=== PATIENT | male | born 1990 | race Caucasian/White ===

== ENCOUNTER 2016-05-29 12:42 | Emergency (ER) | payer MEDICAID, OTHER ==
[~2016-05-29] VITALS: Ht 165.1 cm; Wt 86.2 kg
[~2016-05-29 12:42] MED LIST: ABILIFY10 MG PO; ABILIFY5 MG PO; AMBIEN5 MG PO; ATARAX HCL25 MG PO; AZULFIDINE500 M1 PO; CLOMIPRAMINE25 MG; DEPAKOTE500 M2; DIVALPROEX SOD500 M1 PO; FISH OIL1 POW; HYDROCHLOROTHIA25 MG; HYDROXYZINE HCL50 MG; IBUPROFEN600 M1; LEVOTHYROXINE0.05 M3; OMEPRAZOLE MAGN20 MG; SYNTHROID0.05 MG PO; VOLTAREN75 M1 PO
[2016-05-29 12:53] VITALS: BP 146/86
--- NOTE | 2016-05-29 16:30 | NUR ---
Patient appears to be resting comfortably in bed. Vital Signs within normal limits. Respirations even and unlabored.WILL CONTINUE TO MONITOR
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
[2016-05-29] MEDS ORDERED: LIDOCAINE JELLY 2% 30 ML TUBE TP ONE (18:20)
[2016-05-29 19:27] VITALS: BP 118/71
--- NOTE | 2016-05-29 19:27 | NUR ---
Patient discharged with v/s stable. Written and verbal after care instructions given and explained. Patient alert, oriented and verbalized understanding of instructions. Ambulatory with steady gait. All questions addressed prior to discharge. ID band removed. Patient advised to follow up with PMD. Rx of BACITRACIN OINTMENT given. Patient educated on indication of medication including possible reaction and side effects. Opportunity to ask questions provided and answered. DAD AT BEDSIDE AT THIS TIME
== END 2016-05-29 19:27 | disposition home or self-care (01) ==
LOC: MED 12:42
DX: T23.242A Burn of second degree of multiple left fingers (nail), including thumb, initial encounter (principal); F15.10 Other stimulant abuse, uncomplicated; F17.200 Nicotine dependence, unspecified, uncomplicated; E03.9 Hypothyroidism, unspecified; I10 Essential (primary) hypertension; K21.9 Gastro-esophageal reflux disease without esophagitis; X08.8XXA Exposure to other specified smoke, fire and flames, initial encounter; Y93.89 Activity, other specified; Y92.89 Other specified places as the place of occurrence of the external cause; Y99.8 Other external cause status

== ENCOUNTER 2016-09-05 15:19 | Emergency (ER) | payer OTHER ==
[~2016-09-05] VITALS: Ht 162.6 cm; Wt 80.5 kg
[~2016-09-05 15:19] MED LIST changes: -ABILIFY10 MG PO; -ABILIFY5 MG PO; -AMBIEN5 MG PO; +ARIP10TA28 PO; +ATA25 PO; -ATARAX HCL25 MG PO; -AZULFIDINE500 M1 PO; -CLOMIPRAMINE25 MG; -DEPAKOTE500 M2; +DIVA500T47 PO; -DIVALPROEX SOD500 M1 PO; -FISH OIL1 POW; -HYDROCHLOROTHIA25 MG; -HYDROXYZINE HCL50 MG; -IBUPROFEN600 M1; -LEVOTHYROXINE0.05 M3; -OMEPRAZOLE MAGN20 MG; +SULF500T6 PO; +SYN.05 PO; -SYNTHROID0.05 MG PO; -VOLTAREN75 M1 PO; +ZOLP5TAB1 PO
[2016-09-05 15:32] VITALS: BP 141/89
--- NOTE | 2016-09-05 18:00 | NUR ---
PT TAKEN TO OVERFLOW CHAIR.
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
--- NOTE | 2016-09-05 19:34 | NUR ---
Patient being evaluated by physician.
--- NOTE | 2016-09-05 19:37 | NUR ---
Patient being evaluated by physician at bedside.
[2016-09-05] MEDS ORDERED: KETOROLAC 60 MG/2 ML VIAL IM ONE (19:45)
[2016-09-05 20:06] VITALS: BP 132/86
--- NOTE | 2016-09-05 20:06 | NUR ---
Patient discharged with v/s stable. Written and verbal after care instructions given and explained. Patient alert, oriented and verbalized understanding of instructions. Ambulatory with steady gait. All questions addressed prior to discharge. ID band removed. Patient advised to follow up with PMD. Rx of MOTRIN 800 MG given. Patient educated on indication of medication including possible reaction and side effects. Opportunity to ask questions provided and answered.
== END 2016-09-05 20:06 | disposition home or self-care (01) ==
LOC: MED 15:19
DX: F19.10 Other psychoactive substance abuse, uncomplicated (principal); M79.604 Pain in right leg; F17.210 Nicotine dependence, cigarettes, uncomplicated; F12.90 Cannabis use, unspecified, uncomplicated; K21.9 Gastro-esophageal reflux disease without esophagitis; I10 Essential (primary) hypertension; F31.9 Bipolar disorder, unspecified; F20.9 Schizophrenia, unspecified
CPT/HCPCS: 96372; 99283; J1885

== ENCOUNTER 2017-06-11 21:47 | Emergency (ER) | payer OTHER ==
[~2017-06-11] VITALS: Ht 162.6 cm; Wt 70.3 kg
[~2017-06-11 21:47] MED LIST changes: +ABI10 PO; -ARIP10TA28 PO
[2017-06-11 21:53] VITALS: BP 164/88
[2017-06-11 21:57] VITALS: BP 164/88
[2017-06-11] MEDS ORDERED: KETOROLAC 30 MG/ML VIAL IVP ONE (22:20)
== END 2017-06-11 22:56 | disposition home or self-care (01) ==
LOC: MED 21:47
DX: R07.89 Other chest pain (principal); K21.9 Gastro-esophageal reflux disease without esophagitis; I10 Essential (primary) hypertension
CPT/HCPCS: 71045; 81002; 93005; 96374; 99284; J1885; Q0092

== ENCOUNTER 2017-07-23 19:41 | Emergency (ER) | payer OTHER ==
[~2017-07-23] VITALS: Ht 165.1 cm; Wt 99.8 kg
[2017-07-23 19:44] VITALS: BP 147/98
--- NOTE | 2017-07-23 19:49 | NUR ---
PT TO ER BED 1
--- NOTE | 2017-07-23 19:49 | NUR ---
26/M CAME IN W C/O 12/03 CHEST PAIN, THROAT PAIN, HEADACHE AND LT JAW PAIN. PT REPORTS HISTORY OF HEAVY METH USE X 2 DAYS. ALSO REPORTS LT JAW PAIN. PMH: HTN, HYPOTHYROIDISM, HLD Addendum: 07/23/17 at 2130 by MEDTalaK PT PLACED ON PRODUCT MANAGEMENT SPECIALIST AND PULSE OX
[2017-07-23 22:20] VITALS: BP 126/80
--- NOTE | 2017-07-23 22:20 | NUR ---
Patient discharged with v/s stable. Written and verbal after care instructions given and explained. Patient alert, oriented and verbalized understanding of instructions. Ambulatory with steady gait. All questions addressed prior to discharge. ID band removed. Patient advised to follow up with PMD. Rx of ATIVAN 1 MG given. Patient educated on indication of medication including possible reaction and side effects. Opportunity to ask questions provided and answered.
== END 2017-07-23 22:20 | disposition home or self-care (01) ==
LOC: MED 19:41
DX: F15.90 Other stimulant use, unspecified, uncomplicated (principal); K21.9 Gastro-esophageal reflux disease without esophagitis; I10 Essential (primary) hypertension; E03.9 Hypothyroidism, unspecified; F31.9 Bipolar disorder, unspecified; F20.9 Schizophrenia, unspecified; Z79.899 Other long term (current) drug therapy
CPT/HCPCS: 81002; 93005; 99283

== ENCOUNTER 2017-10-01 19:46 | Emergency (ER) | payer OTHER ==
[~2017-10-01] VITALS: Ht 162.6 cm; Wt 89.4 kg
[2017-10-01 20:07] VITALS: BP 141/100
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
--- NOTE | 2017-10-01 22:57 | NUR ---
Dr. Mendoza evaluating patient at bedside.
[2017-10-01] MEDS ORDERED: NACL 0.9% 1,000 ML IV SCH (23:06)
[2017-10-01 23:37] LABS: BARBITURATE, URINE NEG. ng/ml (NEG <=200); BENZODIAZEPINE, URINE NEG. ng/mL (NEG <=200); CANNABINOID, URINE NEG. ng/mL (NEG <=50); COCAINE, URINE NEG. ng/mL (NEG <=300); OPIATE, URINE NEG. ng/mL (NEG <=2000); PHENCYCLIDINE SCREEN,URINE NEG. ng/mL (NEG <=25)
[2017-10-01 23:50] LABS: APPEARANCE,URINE CLEAR (CLEAR); BILIRUBIN,URINE NEGATIVE (NEGATIVE); BLOOD, URINE NEGATIVE (NEGATIVE); COLOR,URINE YELLOW (YELLOW); LEUKOCYTE ESTERASE ,URINE NEGATIVE (NEGATIVE); NITRITE, URINE NEGATIVE (NEGATIVE); UGLUCOSE NEGATIVE (NEGATIVE)
[2017-10-01 23:51] LABS: BASOPHILS % (AUTO) 0.2 % (0.0-2.0); EOSINOPHILS % (AUTO) 0.1 % (0.0-4.0); HEMATOCRIT 39.3 % (36-52); HEMOGLOBIN 13.4 g/dL (12.0-18.0); LYMPHOCYTES # (AUTO) 2.4 K/uL (2.0-11.5); LYMPHOCYTES % (AUTO) 28.8 % (20.5-51.1); MEAN CORPUSCULAR HEMOGLOBIN 29 pg (27-31); MEAN CORPUSCULAR HGB CONC 34 g/dL (33-37); MEAN CORPUSCULAR VOLUME 84.9 fL (80-94); MONOCYTES # (AUTO) 1.2 K/uL (0.8-1.0); MONOCYTES % (AUTO) 14.3 % (1.7-9.3); NEUTROPHILS # (AUTO) 4.7 K/uL (1.8-7.7); NEUTROPHILS % (AUTO) 56.6 % (42.2-75.2); PLATELET COUNT (AUTO) 261 K/uL (140-450); RED BLOOD CELL COUNT(AUTO) 4.63 MIL/uL (4.20-6.10); RED CELL DISTRIBUTION WIDTH 14.9 % (11.6-13.7); WHITE BLOOD COUNT (AUTO) 8.2 K/uL (4.8-10.8)
[2017-10-02 00:05] LABS: ANION GAP 9.1 (8-16); CARBON DIOXIDE 32.2 mmol/L (21-32); CREATININE 0.7 mg/dL (0.7-1.3); POTASSIUM 3.3 mmol/L (3.5-5.1)
[2017-10-02 00:11] LABS: ALBUMIN 3.7 g/dL (3.4-5.0); TOTAL BILIRUBIN 0.4 mg/dL (0.0-1.0)
[2017-10-02 00:18] LABS: CREATINE KINASE MB 0.8 ng/mL (0-3.6)
[2017-10-02] MEDS ORDERED: LEVO0.0523 PO (00:19)
[2017-10-02] MEDS ORDERED: HAL5 PO (00:19)
[2017-10-02] MEDS ORDERED: COG1 PO (00:19)
[2017-10-02] MEDS ORDERED: FISH1CAP3 PO (00:19)
[2017-10-02] MEDS ORDERED: BEN50 PO (00:19)
[2017-10-02] MEDS ORDERED: PRAZ1CAP5 PO (00:19)
[2017-10-02] MEDS ORDERED: TRAZ-343 PO (00:19)
[2017-10-02] MEDS ORDERED: DIVA500T1 PO (00:19)
[2017-10-02] MEDS ORDERED: TOF25 PO (00:19)
[2017-10-02] MEDS ORDERED: ZIPR60CA1 PO (00:19)
[2017-10-02] MEDS ORDERED: [UNRECOGNIZED DRUG - CODE] PO (00:19)
--- NOTE | 2017-10-02 00:30 | NUR ---
PT RESTING IN BED, C/O HEADACHE, MADE MD AWARE. ALL NEEDS MET AT THIS TIME.
[2017-10-02] MEDS ORDERED: KETOROLAC 30 MG/ML VIAL IVP ONE (00:35)
[2017-10-02 01:47] VITALS: BP 128/68
== END 2017-10-02 01:48 | disposition home or self-care (01) ==
LOC: MED 19:46
DX: F15.129 Other stimulant abuse with intoxication, unspecified (principal); E86.0 Dehydration; K21.9 Gastro-esophageal reflux disease without esophagitis; I10 Essential (primary) hypertension; E03.9 Hypothyroidism, unspecified; F31.9 Bipolar disorder, unspecified; Z79.899 Other long term (current) drug therapy
CPT/HCPCS: 36415; 80053; 80305; 81003; 82550; 82553; 84484; 85025; 96361; 96374; 99285; G0480; G0482; J1885; J7030

== ENCOUNTER 2017-12-28 01:19 | Emergency (ER) | payer OTHER ==
[~2017-12-28] VITALS: Ht 162.6 cm; Wt 77.1 kg
[~2017-12-28 01:19] MED LIST changes: +BEN50 PO; +COG1 PO; +DIVA500T1 PO; +FISH1CAP3 PO; +HAL5 PO; +LEVO0.0523 PO; +PRAZ1CAP5 PO; +TOF25 PO; +TRAZ-343 PO; +ZIPR60CA1 PO; +[UNRECOGNIZED DRUG - CODE] PO
[2017-12-28 01:20] VITALS: BP 143/70
[2017-12-28 01:27] VITALS: BP 125/60
[2017-12-28] MEDS: LORazepam 2 MG/ML VIAL IM ONE (01:50)
== END 2017-12-28 01:26 | disposition home or self-care (01) ==
LOC: MED 01:19
DX: F19.10 Other psychoactive substance abuse, uncomplicated (principal); K21.9 Gastro-esophageal reflux disease without esophagitis; I10 Essential (primary) hypertension; E03.9 Hypothyroidism, unspecified; Z79.899 Other long term (current) drug therapy
CPT/HCPCS: 96372; 99283; J2060

== ENCOUNTER 2018-03-21 14:38 | Emergency (ER) | payer OTHER ==
[~2018-03-21] VITALS: Ht 160 cm; Wt 73.7 kg
[2018-03-21 14:40] VITALS: BP 163/85
--- NOTE | 2018-03-21 14:55 | NUR ---
PT PLACED IN E TO BE OBSERVED UNTIL A BED IS AVAILABLE. FATHER REMAINS W/ PT
--- NOTE | 2018-03-21 15:18 | NUR ---
27 YO M BIB FATHER W/ C/O RIGHT LEG AND ARM PAIN X TODAY. PT STATES THAT HE HAS BEEN SMOKING METH FOR THE PAST 3 DAYS STRAIGHT. PT DENIES INJECTING THE DRUGS BUT HAS NOTED GROWTHS/TRACK LOVE TO THE AC AREA OF RIGHT ARM. PT W/ RIGHT LEG REDNESS, -EDEMA. -HOLMANS SIGN. O2 SAT 100%. NO RESP DISTRESS. PT W/ ABNORMAL FACIAL MOVEMENTS AND LIP SMACKING. FATHER STATES THAT IS PT BASELINE. REQUESTING COPIES OF UDS FOR CADD TECHNICIAN/COURT. HX ON FILE RX ON FILE, NO NEW ORDERS
[2018-03-21 15:42] LABS: BARBITURATE, URINE NEG. ng/ml (NEG <=200); BENZODIAZEPINE, URINE NEG. ng/mL (NEG <=200); CANNABINOID, URINE POS. ng/mL (NEG <=50); COCAINE, URINE NEG. ng/mL (NEG <=300); OPIATE, URINE NEG. ng/mL (NEG <=2000); PHENCYCLIDINE SCREEN,URINE NEG. ng/mL (NEG <=25)
--- NOTE | 2018-03-21 15:48 | NUR ---
C/O CHEST PAIN.NOTIFIED DR ALONSO.
--- NOTE | 2018-03-21 16:18 | NUR ---
Patient being evaluated by DR ALONSO at bedside.
[2018-03-21] MEDS ORDERED: LORazepam 2 MG/ML VIAL IVP ONE (16:20)
[2018-03-21] MEDS ORDERED: NACL 0.9% 2,000 ML IV ONE (16:20)
[2018-03-21] MEDS ORDERED: diphenhydrAMINE 50 MG/ML VIAL IVP ONE (16:20)
[2018-03-21] MEDS ORDERED: BENZTROPINE 2 MG/2 ML AMP IVP ONE (16:20)
[2018-03-21 16:42] LABS: BASOPHILS # (AUTO) 0.1 K/uL (0.00-0.22); BASOPHILS % (AUTO) 0.5 % (0.0-2.0); EOSINOPHILS % (AUTO) 0.1 % (0.0-4.0); HEMATOCRIT 43.2 % (36-52); HEMOGLOBIN 14.6 g/dL (12.0-18.0); LYMPHOCYTES # (AUTO) 4.1 K/uL (2.0-11.5); LYMPHOCYTES % (AUTO) 29.6 % (20.5-51.1); MEAN CORPUSCULAR HEMOGLOBIN 29 pg (27-31); MEAN CORPUSCULAR HGB CONC 34 g/dL (33-37); MEAN CORPUSCULAR VOLUME 85.9 fL (80-94); MONOCYTES # (AUTO) 1.9 K/uL (0.8-1.0); MONOCYTES % (AUTO) 13.8 % (1.7-9.3); NEUTROPHILS # (AUTO) 7.7 K/uL (1.8-7.7); PLATELET COUNT (AUTO) 407 K/uL (140-450); RED BLOOD CELL COUNT(AUTO) 5.03 MIL/uL (4.20-6.10); RED CELL DISTRIBUTION WIDTH 15.8 % (11.6-13.7); WHITE BLOOD COUNT (AUTO) 13.8 K/uL (4.8-10.8)
[2018-03-21 16:58] LABS: ANION GAP 14.7 (8-16); CARBON DIOXIDE 29.4 mmol/L (21-32); CREATININE 0.9 mg/dL (0.7-1.3); POTASSIUM 3.1 mmol/L (3.5-5.1)
--- NOTE | 2018-03-21 18:57 | NUR ---
Patient discharged with v/s stable. Written and verbal after care instructions given and explained. Patient alert, oriented and verbalized understanding of instructions. Ambulatory with steady gait. All questions addressed prior to discharge. ID band removed. Patient advised to follow up with PMD. Rx of DIPHENHYDRAMINE given. Patient educated on indication of medication including possible reaction and side effects. Opportunity to ask questions provided and answered.
[2018-03-21 18:58] VITALS: BP 124/86
== END 2018-03-21 18:57 | disposition home or self-care (01) ==
LOC: MED 14:38
DX: L23.9 Allergic contact dermatitis, unspecified cause (principal); F15.129 Other stimulant abuse with intoxication, unspecified; G24.01 Drug induced subacute dyskinesia; K21.9 Gastro-esophageal reflux disease without esophagitis; I10 Essential (primary) hypertension; E03.9 Hypothyroidism, unspecified; Z79.899 Other long term (current) drug therapy; Z79.2 Long term (current) use of antibiotics
CPT/HCPCS: 36415; 80048; 80305; 81002; 85025; 93005; 99284; J0515; J1200; J2060; J7030

== ENCOUNTER 2018-06-17 21:55 | Inpatient (IN) | payer OTHER ==
[~2018-06-17] VITALS: Ht 170.2 cm; Wt 70.3 kg
--- NOTE | 2018-06-17 21:58 | NUR ---
PT MARIJA BLS. TAKEN TO BED 8
--- NOTE | 2018-06-17 21:58 | NUR ---
Brenna abraham in [facility] - 06/17/18 at 2158 by JOVON PT TAKEN TO BED 8
[2018-06-17 21:59] VITALS: BP 127/64
--- NOTE | 2018-06-17 21:59 | NUR ---
27/M BIBA FROM HOME. PER EMS, PT WAS FOUND BY FAMILY IN FRONT OF HOUSE WITH ALOC. PT WAS GIVEN ZOFRAN 4MG [facility], 20G IV LAC WAS PLACED. PT ARRIVES TO ED, REPORTS SMOKING METH 6 HRS AGO. PT AOX4, GCS 15, PERRLA, SKIN PINK WARM AND DRY, NOTED WITH DIRT AND BAD HYGIENE. SPO2 98% ON RA, RR 28 EVEN AND MILDLY LABORED. LUNG SOUNDS CLEAR BL. PT REPORTS BL FEET PAIN X1 WEEKS, REPORTS HE HAS BEEN WALKING IN THE STREETS. PT STATED THAT HE HAS A HOME BUT HE STAYS IN THE STREETS. PT DENIES CP, SOB, N/V. HX BIPOLAR, SCHIZOPHRENIA
--- NOTE | 2018-06-17 22:34 | NUR ---
EKG PERFORMED AT BEDSIDE
[2018-06-17 22:54] LABS: BASOPHILS % (AUTO) 0.3 % (0.0-2.0); EOSINOPHILS # (AUTO) 0.1 K/uL (0-0.4); EOSINOPHILS % (AUTO) 1.4 % (0.0-4.0); HEMATOCRIT 39.3 % (36-52); HEMOGLOBIN 13.3 g/dL (12.0-18.0); LYMPHOCYTES # (AUTO) 2.5 K/uL (2.0-11.5); LYMPHOCYTES % (AUTO) 36.1 % (20.5-51.1); MEAN CORPUSCULAR HEMOGLOBIN 28 pg (27-31); MEAN CORPUSCULAR HGB CONC 34 g/dL (33-37); MEAN CORPUSCULAR VOLUME 83.9 fL (80-94); MONOCYTES # (AUTO) 0.8 K/uL (0.8-1.0); MONOCYTES % (AUTO) 10.9 % (1.7-9.3); NEUTROPHILS # (AUTO) 3.6 K/uL (1.8-7.7); NEUTROPHILS % (AUTO) 51.3 % (42.2-75.2); PLATELET COUNT (AUTO) 320 K/uL (140-450); RED BLOOD CELL COUNT(AUTO) 4.68 MIL/uL (4.20-6.10); RED CELL DISTRIBUTION WIDTH 15.2 % (11.6-13.7)
[2018-06-17 23:03] LABS: BARBITURATE, URINE NEG. ng/ml (NEG <=200); BENZODIAZEPINE, URINE NEG. ng/mL (NEG <=200); CANNABINOID, URINE NEG. ng/mL (NEG <=50); COCAINE, URINE NEG. ng/mL (NEG <=300); OPIATE, URINE NEG. ng/mL (NEG <=2000); PHENCYCLIDINE SCREEN,URINE NEG. ng/mL (NEG <=25)
[2018-06-17 23:15] LABS: ANION GAP 11.7 (8-16); CARBON DIOXIDE 26.4 mmol/L (21-32); CHLORIDE 99 mmol/L (98-107); CREATININE 0.7 mg/dL (0.7-1.3); GFR ARICAN-AMERICAN 175 mL/min (>90); GLUCOSE 89 mg/dL (74-106); POTASSIUM 3.1 mmol/L (3.5-5.1); SODIUM SERUM 134 mmol/L (136-145); UREA NITROGEN, BLOOD 17 mg/dL (7-18)
[2018-06-17 23:19] LABS: ALBUMIN 3.5 g/dL (3.4-5.0); ASPARTATE AMINOTRANSFERASE 27 U/L (15-37); SALICYLATE 2.8 mg/dL (2.8-20.0); TOTAL BILIRUBIN 0.4 mg/dL (0.0-1.0)
[2018-06-17 23:20] LABS: ACETAMINOPHEN < 0.5 ug/ml (10-30)
--- NOTE | 2018-06-17 23:33 | NUR ---
DR. HERMOSILLO EVALUATING PATIENT.
[2018-06-17] MEDS ORDERED: LORazepam 2 MG/ML VIAL IVP ONE (23:45)
[2018-06-17] MEDS ORDERED: NACL 0.9% 1,000 ML IV ONE (23:45)
--- NOTE | 2018-06-18 00:31 | NUR ---
PT SLEEPING IN BED, AROUSABLE TO NAME, FATHER AT BEDSIDE. RR EVEN AND UNLABORED. VSS. ALL NEEDS MET.
--- NOTE | 2018-06-18 01:28 | NUR ---
PT RESTLESS AND YELLING IN BED, PT STATED "I'M COLD." PT REMOVED IV, CANNULA INTACT, DRESSING PLACED. PT PROVIDED WITH WARM BLANKET. PT REORIENTED.
--- NOTE | 2018-06-18 01:45 | NUR ---
EMT AT BEDSIDE CLEANING PT'S BL FEET.
--- NOTE | 2018-06-18 01:50 | NUR ---
PT FEET ATTEMPTED TO BE CLEANED WITH NORMAL SALINE. PT DID NOT COOPERATE AND RESISTED, UNABLE TO FINISH
--- NOTE | 2018-06-18 02:15 | NUR ---
PTS FEET WERE WRAPPED WITH GAUZE AND SOCKS WERE PUT ON PT
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
--- NOTE | 2018-06-18 03:00 | NUR ---
RECEIVED CALL FROM PT'S RETIREMENT CAREGIVER [facility] , AGREED TO BRING PT BACK HOME.
--- NOTE | 2018-06-18 03:20 | NUR ---
PT SLEEPING IN BED, AROUSABLE TO TOUCH. RR EVEN AND UNLABORED. VSS. ALL NEEDS MET.
--- NOTE | 2018-06-18 03:20 | NUR ---
RECEIVED CALL FROM [facility], WAS NOTIFIED THAT THEY HAVE DECIDED THAT THEY CANNOT TAKE CARE OF THE PT. SHE RECOMMENDED TO CALL CEDRICK NUNN FROM [facility]. MADE PT'S FATHER AWARE.
--- NOTE | 2018-06-18 03:40 | NUR ---
SPOKE WITH PT'S FATHER, EXPLAINED THAT PT'S [facility] HAS DECIDED TO STOP TAKING CARE OF PT. PT'S FATHER STATED THAT "I DON'T WANT TO TAKE CARE OF HIM EITHER" AND I'M DONE." PT'S FATHER STATED THAT HE DOES NOT HAVE A CAR RIGHT NOW. PT'S FATHER LEAVING HOSPITAL AT THIS TIME, LEAVING HIS NUMBER
--- NOTE | 2018-06-18 03:45 | NUR ---
MAGGIE CHAVARRIA MADE AWARE OF PT'S SITUATION
--- NOTE | 2018-06-18 04:31 | NUR ---
TELEPSYCH INITIATED PER DR. HERMOSILLO
--- NOTE | 2018-06-18 05:23 | NUR ---
TELEPSYCH, DR. BELLO, CALLED AND SPOKE WITH MARGARET KHOURY
--- NOTE | 2018-06-18 05:30 | NUR ---
PT SLEEPING IN BED, AROUSABLE TO NAME, VSS, RR EVEN AND UNLABORED, REPORTS 9/10 BL FEET PAIN. RECEIVED CALL FROM DR. BELLO, DISCUSSED PT'S SITUATION.
--- NOTE | 2018-06-18 05:41 | NUR ---
TELEPSYCH, DR. BELLO, SPEAKING WITH PATIENT VIA REMOTE COMMUNICATION
--- NOTE | 2018-06-18 06:02 | NUR ---
PT MOVED TO ER BED 6
--- NOTE | 2018-06-18 06:06 | NUR ---
[place] PD OFFICER AT BEDSIDE
--- NOTE | 2018-06-18 06:20 | NUR ---
PT PLACED ON 5150 HOLD BY MICHAEL PD OFFICER
[2018-06-18] MEDS ORDERED: LORazepam 2 MG/ML VIAL IVP PRN (06:45)
[2018-06-18] MEDS ORDERED: ONDANSETRON 4 MG/2 ML VIAL IVP PRN (06:45)
--- NOTE | 2018-06-18 07:05 | NUR ---
Patient will be admitted to care of DR. LLANOS. Admited to [facility]. Will go to [id number]. Belongings list completed. Report to KRISTOFER ROBLES.
--- NOTE | 2018-06-18 07:10 | NUR ---
RECEIVED HANDOFF REPORT FROM ER NURSE. PT IS ASLEEP IN BED NOTABLE CHEST RISE AND FALL. PT IS STABLE AND IN NO APPARENT DISTRESS. ALL SAFETY MEASURES ARE IN PLACE. SITTER AT BEDSIDE. WILL CONTINUE TO MONITOR.
[2018-06-18 08:00] VITALS: BP 106/73
--- NOTE | 2018-06-18 08:07 | NUR ---
PATIENT HAS BEEN SCREENED AND CATEGORIZED LOW NUTRITION RISK. PATIENT WILL BE SEEN WITHIN 7 DAYS OF ADMISSION. 06/24/[address]
--- NOTE | 2018-06-18 08:26 | NUR ---
SPOKE WITH PATIENTS FATHER AT BEDSIDE. USED BLUE PHONE LINTER TENDER TO RECEIVE PT HEALTH HISTORY FROM THE FATHER. THE FATHER ALSO SPOKE WITH HIS ELECTRONIC ORGAN TECHNICIAN. CEDRICK NUNN [phone] WHO INFORMED ME THAT HE IS LOOKING INTO [facility] FOR [facility] SINCE HIS PREVIOUS [facility] STATED THAT THEY WONT TAKE HIM BACK. INFORMED HIM THAT WE ARE WAITING FOR A CONSULT FROM THE PSYCHIATRIST.
--- NOTE | 2018-06-18 08:35 | NUR ---
CEDRICK NUNN PT POLE FRAMER MACHINE INFORMED ME THAT THE PREVIOUS DETENTION THAT STATED THEY WOULD NOT TAKE HIM BACK IS UNDER CONTRACT AND IS REQUIRED TO ACCEPT THE PATIENT BACK. IF HOWEVER THEY WONT PATIENTS FATHER REQUEST THAT WE CONTACT HIM DONALD OCHOA [phone].
--- NOTE | 2018-06-18 08:37 | NUR ---
PREVIOUS LONGTERMMARKETING ACCOUNT EXECUTIVE [facility] [phone]
--- NOTE | 2018-06-18 09:05 | NUR ---
PT ASLEEP IN BED NOTABLE CHEST RISE AND FALL. PT APPEARS STABLE AND IN NO APPARENT DISTRESS, ALL SAFETY MEASURES ARE IN PLACE, SITTER AT BEDSIDE. WILL CONTINUE TO MONITOR.
--- NOTE | 2018-06-18 11:16 | NUR ---
PT AWAKE IN BED. ASKING FOR LUNCH PT APPEARS STABLE AND IN NO APPARENT DISTRESS. PT IS CALM. ALL SAFETY MEASURES ARE IN PLACE. WILL CONTINUE TO MONITOR.
--- NOTE | 2018-06-18 13:00 | NUR ---
PERFORM MEDICATION RECON. WITH UP TO DATE MEDICATIONS FROM [facility] PTS CAREGIVER AT HIS SENIOR CARE. SHE STATED THE LAST MEDICATIONS HE TOOK WAS ON 06/10. STATED PT WAS ONLY ON OLANZAMPIEN 10 MG 1 TABLET BID HYDROXYZINE 50 MH 1 TABLET BID TRAZODONE 50 MG 1 TABLET AT HS DIVALPROEX SODIUM ER 500 MG [address] LLANOS ABOUT THE CORRECTED MEDICATION RECON.
[2018-06-18] MEDS ORDERED: OLAN20TA1 PO (13:11)
--- NOTE | 2018-06-18 13:15 | NUR ---
FREQUENT ROUNDING. PT IS ASLEEP IN BED. NOTABLE CHEST RISE AND FALL. PT APPEARS STABLE AND IN NO APPARENT DISTRESS. ALL SAFETY MEASURES ARE IN PLACE. SITTER AT BEDSIDE. WILL CONTINUE TO MONITOR.
[2018-06-18] MEDS: hydrOXYzine HCL 25 MG TAB PO SCH ×2 (14:10→18:22)
--- NOTE | 2018-06-18 14:48 | NUR ---
CALLED DR. PARRA EXCHANGE ([phone]), MESSAGE LEFT FOR THE CONSULT. FAXED PT'S FACE SHEET TO #[phone] INSTRUCTED. FAX TRANSACTION CONFIRMED AND PLACED IN THE CHART.
--- NOTE | 2018-06-18 15:10 | NUR ---
FREQUENT ROUNDING. PT IS ASLEEP IN BED NOTABLE CHEST RISE AND FALL. PT APPEARS STABLE AND IN NO APPARENT DISTRESS. ALL SAFETY MEASURES ARE IN PLACE AND SITTER IS AT PT BEDSIDE. WILL CONTINUE TO MONITOR.
[2018-06-18 16:05] VITALS: BP 106/73
--- NOTE | 2018-06-18 16:37 | NUR ---
CALLED [facility] [phone] WITH [facility] FAXED ALL THE PAPER WORK FOR PSYCH PLACEMENT PER DR METZGER PT IS MEDICALLY CLEAR.
--- NOTE | 2018-06-18 17:05 | NUR ---
FREQUENT ROUNDING. PT IS AWAKE IN BED. PT IS STABLE AND IN NO APPARENT DISTRESS, ALL SAFETY MEASURES ARE IN PLACE. SITTER AT BEDSIDE. WILL CONTINUE TO MONITOR.
--- NOTE | 2018-06-18 17:38 | NUR ---
PACKET FAXED TO [facility], [facility], [facility], [facility], [facility], [facility], [facility] FOR REVIEW. WILL CONTACT IF BED AVAILABLE AND PT ACCEPTED. OF NOW, NO BEDS AVAILABLE, SOME PENDING D/C AT [facility] AND [facility]. WILL CONTINUE LOOKING FOR PLACEMENT
--- NOTE | 2018-06-18 19:35 | NUR ---
RECEIVED BEDSIDE REPORT FROM DAY SHIFT NURSE. PATIENT AWAKE, ALERT, AND COOPERATIVE. RESPIRATION EVEN UNLABORED ON ROOM AIR. NO DISTRESS NOTED. SKIN IS WARM AND DRY. PATIENT IS ON CONTINUOS 1:1 SITTER. FAMILY AT BEDSIDE. PLAN OF CARE WAS DISCUSSED. ALL SAFETY MEASURES IN PLACE. BED IS AT LOW POSITION. WILL CONTINUE TO MONITOR.
--- NOTE | 2018-06-18 19:36 | NUR ---
ENDORSED PT TO REGIONAL MANAGER NURSE. PT IS AWAKE. FATHER IS AT PT BEDSIDE. PT APPEARS STABLE AND IN NO APPARENT DISTRESS. ALL SAFETY MEASURES ARE IN PLACE. SITTER AT BEDSIDE.
[2018-06-18 20:00] VITALS: BP 110/74
--- NOTE | 2018-06-18 20:00 | NUR ---
INITIAL ASSESSMENT DONE. PATIENT CONDITION STABLE. FAMILY AT BEDSIDE. WILL CONTINUE TO MONITOR
[2018-06-18] MEDS: BENZTROPINE 1 MG TAB PO SCH (20:27)
[2018-06-18] MEDS: ARIPiprazole 10 MG TAB PO SCH (20:28)
[2018-06-18] MEDS: DIVALPROEX 500 MG TABEC PO SCH (20:28)
--- NOTE | 2018-06-18 21:00 | NUR ---
ALL SCHEDULED MEDS WERE GIVEN PER ORDER. NO ASE NOTED. WILL CONTINUE TO MONITOR.
--- NOTE | 2018-06-18 23:00 | NUR ---
PATIENT LYING IN BED SLEEPING RESPIRATION EVEN UNLABORED ON ROOM AIR. NO DISTRESS NOTED. WILL CONTINUE TO MONITOR
[2018-06-19] VITALS: BP 116/63
--- NOTE | 2018-06-19 | NUR ---
VITALS WERE TAKEN. PATIENT CONDITION STABLE NO DISTRESS NOTED. WILL CONTINUE TO MONITOR
--- NOTE | 2018-06-19 00:52 | NUR ---
Follow up calls were made regarding bed placement. Still no beds available at this time. [facility], spoke with Nestor. [facility], spoke with Oliver. [facility], spoke with nursing refining supervisor. [facility], spoke with Alisha. April Qiu [facility], spoke with Elsa. [facility], spoke with Alta. Will continue to make follow up calls in the AM.
--- NOTE | 2018-06-19 02:00 | NUR ---
CHECKED PATIENT. PATIENT SLEEPING RESPIRATION EVEN UNLABORED ON ROOM AIR. NO DISTRESS NOTED. SITTER AT BEDSIDE. WILL CONTINUE TO MONITOR
--- NOTE | 2018-06-19 04:00 | NUR ---
CHECKED PATIENT. PATIENT SLEEPING RESPIRATION EVEN UNLABORED ON ROOM AIR. SITTER AT BEDSIDE. WILL CONTINUE TO MONITOR
[2018-06-19] MEDS: LEVOTHYROXINE 0.05 MG TAB PO SCH (06:23)
--- NOTE | 2018-06-19 07:42 | NUR ---
ENDORSED PATIENT TO DAY SHIFT NURSE. PATIENT CONDITION STABLE
--- NOTE | 2018-06-19 07:43 | NUR ---
RECEIVED BEDSIDE REPORT FROM NIGHTSHIFT RN. PT AWAKE IN BED. ALERT AND ORIENTATED X4. ROOM AIR. NO SIGNS OF RESP DISTRESS. SKIN INTACT. NO IV PUMP IN ROOM. NO IV SITE. BED IN LOWEST POSITION. CALL LIGHT WITHIN REACH. SITTER AT BEDSIDE. WILL CONTINUE TO MONITOR.
[2018-06-19 08:00] VITALS: BP 118/77
[2018-06-19] MEDS: BENZTROPINE 1 MG TAB PO SCH ×2 (09:36→20:08)
[2018-06-19] MEDS: hydrOXYzine HCL 25 MG TAB PO SCH ×3 (09:36→17:15)
[2018-06-19] MEDS: DIVALPROEX 500 MG TABEC PO SCH ×2 (09:36→20:08)
--- NOTE | 2018-06-19 09:40 | NUR ---
ADMINISTERED MEDS. PT TOLERATED WELL. EDUCATED ON SIDE EFFECTS. PT VERBALIZED UNDERSTANDING. WILL CONTINUE TO MONITOR.
--- NOTE | 2018-06-19 11:45 | NUR ---
FATHER AT BEDSIDE ASKING FOR INFORMATION ON WHERE THE PATIENT WILL BE TRANSFERRED. HE IS ASKING IF THE PATIENT CAN BE TRANSFERRED TO A CLOSER FACILITY. CALLED VALERIANO HERNANDEZ, SHE SAID [facility] USUALLY WORKS WITH PATIENT TRANSFER INFORMATION. CM TO FOLLOW UP WITH PATIENTS FATHERS CONCERNS.
--- NOTE | 2018-06-19 12:07 | NUR ---
ADMINISTERED MEDS. PT TOLERATED WELL. EDUCATED ON THE SIDE EFFECTS. VERBALIZED UNDERSTANDING. NO COMPLAINTS AT THIS TIME. SITTER AT BEDSIDE. WILL CONTINUE TO MONITOR.
--- NOTE | 2018-06-19 13:06 | NUR ---
PATIENT IS SLEEPING. NO SIGNS OF DISTRESS. 1:1 SITTER AT BEDSIDE
--- NOTE | 2018-06-19 14:01 | NUR ---
PATIENT INTERACTING. NO SIGNS OF DISTRESS. WILL CONTINUE TO MONITOR THE PATIENT.
--- NOTE | 2018-06-19 15:06 | NUR ---
I spoke with Dr. Italia Villanueva [phone] regarding the consult, covering DR Fleming, He said he will come tomorrow, will endorse to nurse to follow up.
[2018-06-19 16:00] VITALS: BP 130/67
--- NOTE | 2018-06-19 16:40 | NUR ---
PATIENT SLEEPING. NO SIGNS OF DISTRESS. 1:1 SITTER AT BEDSIDE
--- NOTE | 2018-06-19 17:16 | NUR ---
ADMINISTERED MEDS. EDUCATED PATIENT ON SIDE EFFECTS. VERBALIZED UNDERSTANDING. TOLERATED WELL
--- NOTE | 2018-06-19 19:05 | NUR ---
GAVE BEDSIDE REPORT TO TREE PLANTER NURSE. PATIENT ENDORSED IN STABLE CONDITION
--- NOTE | 2018-06-19 19:10 | NUR ---
RECEIVED MALE PT. FROM AM RN IN BED LAYING DOWN. AWAKE AND ALERT. ABLE TO VERBALIZE NEEDS.NO COMPLAINTS DONE. 5150 CASE[address] SITTER 1:[address] WITH PSYCHIATRIST CONSULT .
[2018-06-19] MEDS: ARIPiprazole 10 MG TAB PO SCH (20:08)
--- NOTE | 2018-06-19 22:22 | NUR ---
P.O MEDICATIONS TOLERATED WELL. GOOD AFFECT. QUIET AT THIS TIME AND VERBALIZES SIMPLE NEEDS. ENCOURAGED TO REST AND SLEEP. NO PAIN COMPLAINTS DONE.
--- NOTE | 2018-06-20 00:10 | NUR ---
SLEEPING. SITTER 1:1.
--- NOTE | 2018-06-20 01:16 | NUR ---
Still no psych beds available at the following contracted psych facilities. [facility] Fil[facility]erto Waggoner, spoke with Alta. [facility], spoke with Oliver. [facility], spoke with Juliana. [facility], spoke with Tigist. April Qiu [facility], spoke with Elsa. [facility], spoke with nursing sup. [facility], spoke with Alta. Will update the unit when a bed becomes available.
[2018-06-20 04:22] VITALS: BP 130/54
--- NOTE | 2018-06-20 04:23 | NUR ---
SLEEPING WELL THIS SHIFT. BEEN QUIET THE WHOLE NIGHT. ABLE TO VERBALIZE NEEDS WELL.
--- NOTE | 2018-06-20 06:04 | NUR ---
SLEPT WELL THIS SHIFT. BEEN ACTING CALM . NO UNTOWARD INCIDENT NOTED. ABLE TO TALK SOFTLY AND ABLE TO RELAY SIMPLE REQUESTS. ROM X 4. SITTER 1:1. DX. 5150.
[2018-06-20] MEDS: LEVOTHYROXINE 0.05 MG TAB PO SCH (06:14)
--- NOTE | 2018-06-20 07:19 | NUR ---
RECEIVED BEDSIDE REPORT FROM BURNER SHAFT RN. PT AWAKE IN BED. ALERT AND ORIENTATED X4. 5150 HOLD. ROOM AIR. NO SIGNS OF PAIN OR DISTRESS. SKIN INTACT. NO IV PUMP IN ROOM. NO IV SITE. BED IN LOWEST POSITION. CALL LIGHT WITHIN REACH. SITTER 1:1 AT BEDSIDE. WILL CONTINUE TO MONITOR.
[2018-06-20 08:00] VITALS: BP 130/61
[2018-06-20 08:13] LABS: BASOPHILS % (AUTO) 0.4 % (0.0-2.0); EOSINOPHILS # (AUTO) 0.1 K/uL (0-0.4); EOSINOPHILS % (AUTO) 1.8 % (0.0-4.0); HEMATOCRIT 40.5 % (36-52); HEMOGLOBIN 13.5 g/dL (12.0-18.0); LYMPHOCYTES # (AUTO) 2.5 K/uL (2.0-11.5); LYMPHOCYTES % (AUTO) 42.7 % (20.5-51.1); MEAN CORPUSCULAR HEMOGLOBIN 28 pg (27-31); MEAN CORPUSCULAR HGB CONC 33 g/dL (33-37); MEAN CORPUSCULAR VOLUME 84.2 fL (80-94); MONOCYTES # (AUTO) 0.3 K/uL (0.8-1.0); MONOCYTES % (AUTO) 5.4 % (1.7-9.3); NEUTROPHILS # (AUTO) 2.9 K/uL (1.8-7.7); NEUTROPHILS % (AUTO) 49.7 % (42.2-75.2); PLATELET COUNT (AUTO) 339 K/uL (140-450); RED BLOOD CELL COUNT(AUTO) 4.81 MIL/uL (4.20-6.10); WHITE BLOOD COUNT (AUTO) 5.8 K/uL (4.8-10.8)
[2018-06-20 08:24] LABS: ANION GAP 12.3 (8-16); CARBON DIOXIDE 26.4 mmol/L (21-32); CREATININE 0.7 mg/dL (0.7-1.3); POTASSIUM 3.7 mmol/L (3.5-5.1)
[2018-06-20] MEDS: hydrOXYzine HCL 25 MG TAB PO SCH ×3 (09:16→17:17)
[2018-06-20] MEDS: DIVALPROEX 500 MG TABEC PO SCH ×2 (09:16→21:17)
[2018-06-20] MEDS: BENZTROPINE 1 MG TAB PO SCH ×2 (09:16→21:17)
--- NOTE | 2018-06-20 09:21 | NUR ---
ADMINISTERED PT MEDICATIONS. PT TOLERATED THEM WELL. NO OTHER NEEDS AT THIS TIME. PT WAS GIVEN SNACKS. NO PAIN OR DISTRESS NOTED. WILL CONTINUE TO MONITOR FREQUENTLY. SITTER AT BEDSIDE 1:1. BED IN LOW POSITION, CALL LIGHT WITHIN REACH.
--- NOTE | 2018-06-20 11:38 | NUR ---
PT SLEEPING IN BED. NO SIGNS OF DISTRESS AT THIS TIME. WILL CONTINUE TO MONITOR PT.
--- NOTE | 2018-06-20 14:02 | NUR ---
PT RESTING IN BED. PT IN GOOD SPIRITS. WILL CONTINUE TO ROUND FREQUENTLY ON PT. SITTER 1:1 AT BEDSIDE.
[2018-06-20] MEDS ORDERED: MAGNESIUM OXIDE 400 MG TAB PO SCH (14:30)
[2018-06-20 16:00] VITALS: BP 124/68
--- NOTE | 2018-06-20 16:59 | NUR ---
PT REQUESTING SNACKS. NO DISTRESS NOTED AT THIS. WILL CONTINUE TO ROUND FREQUENTLY. SITTER AT BEDSIDE 1:1.
--- NOTE | 2018-06-20 17:49 | NUR ---
PT EATING DINNER. NO SIGNS OF DISTRESS OR PAIN NOTED. WILL CONTINUE TO MONITOR PT.
--- NOTE | 2018-06-20 19:28 | NUR ---
ENDORSED PT TO WIRE WRAPPER MACHINE OPERATOR FOR CONTINUITY OF CARE. PT IN STABLE CONDITION AT THIS TIME.
--- NOTE | 2018-06-20 19:29 | NUR ---
REPORT RECEIVED FROM AM NURSE AT BEDSIDE. PT IN STABLE CONDITION. AAOX3. INTRODUCED SELF TO PT. PT HAS NO COMPLAINTS OF PAIN. NO SOB. AFEBRILE. PT REFUSED IV ACCESS. SKIN WARM, DRY, AND INTACT BUT HAS SCABS ON HIS FEET. PT IS AMBULATORY. BED LOCKED IN LOW POSITION. CALL GUSMAN WITHIN REACH. SAFETY PRECAUTIONS IN PLACE. ALL NEEDS MET AT THIS TIME.
[2018-06-20] MEDS: ARIPiprazole 10 MG TAB PO SCH (21:17)
--- NOTE | 2018-06-20 21:17 | NUR ---
ABILIFY, COGENTIN, AND DEPAKOTE GIVEN PO. PT TOLERATED WELL.
--- NOTE | 2018-06-20 21:20 | NUR ---
DR. SCOTT IN TO SEE PT TO ASSESS NEUROLOGICAL FUNCTION. WILL NOT RENEW 5150 HOLD.
[2018-06-20] MEDS: ACETAMINOPHEN 325 MG TAB PO PRN (21:46)
--- NOTE | 2018-06-20 21:46 | NUR ---
TYL 650 GIVEN PO FOR 6/10 FINGER PAIN. PT TOLERATED WELL.
--- NOTE | 2018-06-20 23:40 | NUR ---
PT SLEEPING COMFORTABLY RIGHT LATERAL IN BED. V/S STABLE. NO COMPLAINTS OF PAIN. NO SOB. AFEBRILE. WILL CONTINUE TO MONITOR.
[2018-06-21] VITALS: BP 137/90
--- NOTE | 2018-06-21 01:20 | NUR ---
PT SLEEPING COMFORTABLY. NO S/S OF DISTRESS NOTED. CHEST EXPANSION IS VISIBLE. WILL CONTINUE TO MONITOR.
--- NOTE | 2018-06-21 01:40 | NUR ---
PT FEET CLEANSED WITH NS AND BETADINE.
--- NOTE | 2018-06-21 03:25 | NUR ---
PT SLEEPING COMFORTABLY IN BED. NO S/S OF DISTRESS NOTED. RESPIRATIONS EVEN, UNLABORED, AND WNL. WILL CONTINUE TO MONITOR.
[2018-06-21] MEDS: LEVOTHYROXINE 0.05 MG TAB PO SCH (05:32)
--- NOTE | 2018-06-21 05:32 | NUR ---
SYNTHROID GIVEN PO. PT TOLERATED WELL.
--- NOTE | 2018-06-21 07:10 | NUR ---
REPORT GIVEN TO AM NURSE AT BEDSIDE. PT IN STABLE CONDITION.
[2018-06-21 08:00] VITALS: BP 133/86
[2018-06-21] MEDS: DIVALPROEX 500 MG TABEC PO SCH (09:40)
[2018-06-21] MEDS: ACETAMINOPHEN 325 MG TAB PO PRN ×2 (09:41→13:32)
[2018-06-21] MEDS: hydrOXYzine HCL 25 MG TAB PO SCH ×3 (09:41→17:00)
[2018-06-21] MEDS: BENZTROPINE 1 MG TAB PO SCH (09:41)
--- NOTE | 2018-06-21 11:55 | NUR ---
DR RICHARD AT BEDSIDE FOR EVAL.
--- NOTE | 2018-06-21 15:10 | NUR ---
CALLED DR SCOTT (PSYCH), DR SCOTT STATES PATIENT WAS WAS SEEN AND CLEARED FROM 5150 LAST NIGHT, OK TO DC IF MEDICALLY CLEARED. VERBAL ORDER RECEIVED.
--- NOTE | 2018-06-21 15:35 | NUR ---
CALLED [phone] NUMBER ON FACE SHEET, NUMBER IS NOT WORKING NUMBER, CALLED JOHN OCHOA [phone], LISTED FATHER OF PATIENT ON FACESHEET, BUT JOHN STATED HE IS NOT PATIENT FATHER, HE IS AN UNCLE, INFORMED JOHN OF DISCHARGE ORDER, [facility] STATED HE IS NOT ABLE TO SOFTWARE ARCHITECT THE PATIENT, [facility] STATES HE DOES NOT HAVE ANY CONTACT NUMBER FOR BAL[facility]'S FATHER, [facility] AGREED TO FIND SOME FAMILY MEMBER TO SOFTWARE ARCHITECT PATIENT. WILL WAIT FOR RETURN CALL BACK.
[2018-06-21 16:00] VITALS: BP 137/77
--- NOTE | 2018-06-21 16:10 | NUR ---
CALLED PATIENT'S UNCLE JOHN OCHOA AGAIN AT [phone], JOHN WAS UNABLE TO FIND ANYONE TO HOT METAL CAR OPERATOR PATIENT, HE STATED THAT PATIENT "IS NOT MY RESPONSIBILITY". PATIENT STATES HE WILL GO STAY WITH HIS GUM MACHINE OPERATOR AT [address] PATIENT WANTS TO WALK THERE. HOUSE SUPER VISOR NOTIFIED FOR BUS PASS.
--- NOTE | 2018-06-21 17:35 | NUR ---
PT DISCHARGED HOME FOR SELF CARE. PT DISCHARGE TEACHING WAS DONE. PT VERBALIZED UNDERSTANDING OF TEACHING. PT SIGNED DISCHARGE PAPERWORK. PT HAD NO IV. WRIST BAND REMOVED AND PLACED IN SHRED BIN. PT TOOK ALL PERSONAL BELONGINGS WITH HIM. TAXI VOUCHER WAS GIVEN TO PT FOR TRANSPORTATION TO HOME ADDRESS ON FILE. PT LEFT IN STABLE CONDITION.
--- NOTE | 2018-06-23 14:29 | NUR ---
CALLED OFFICE OF DR GREGG [phone] TO MAKE FOLLOW-UP APPOINTMENT, BUT PATIENT IS NOT ON THEIR LIST, CALLED DR GEIGER [phone] AND PATIENT IS NOT ON THEIR LIST ALSO. CALLED PATIENT [phone] BUT NUMBER IS A NON WORKING NUMBER. CALLED AND SPOKE TO PATIENT'S FATHER JOHN AND INFORMED HIM TO CALL US THE RIGHT NUMBER OF THE PATIENT.
--- NOTE | 2018-06-24 15:36 | NUR ---
Spoke with patient's father Selin and he doesn't know the new phone number or where his son's address.
== END 2018-06-21 17:35 | disposition home or self-care (01) | DRG 812 ==
LOC: MED 21:55 → MTU 06-18 06:47 → OBSVTOIN 06-18 16:26
PROVIDERS: ADMIT Internal Medicine Pulmonary Disease; ATTEND Internal Medicine Pulmonary Disease
DX: T43.621A Poisoning by amphetamines, accidental (unintentional), initial encounter (principal); F20.9 Schizophrenia, unspecified; E03.9 Hypothyroidism, unspecified; F31.9 Bipolar disorder, unspecified; F79 Unspecified intellectual disabilities; K21.9 Gastro-esophageal reflux disease without esophagitis; I10 Essential (primary) hypertension; S90.819A Abrasion, unspecified foot, initial encounter; X58.XXXA Exposure to other specified factors, initial encounter; Y93.89 Activity, other specified; Z91.19 Patient's noncompliance with other medical treatment and regimen; Y92.89 Other specified places as the place of occurrence of the external cause; Y99.8 Other external cause status
CPT/HCPCS: 96374; 99285; G0378; 36415; 80048; 80053; 80305; 82948; 83735; 85025; 93005; G0480; G0482; J2060; J7030

== ENCOUNTER 2018-06-27 09:01 | Emergency (ER) | payer OTHER ==
[~2018-06-27] VITALS: Ht 137.2 cm; Wt 67.1 kg
[~2018-06-27 09:01] MED LIST changes: +OLAN20TA1 PO
[2018-06-27 09:10] VITALS: BP 141/70
--- NOTE | 2018-06-27 09:11 | NUR ---
PATIENT AMBULATED TO BED 4
[2018-06-27] MEDS ORDERED: LIDOCAINE MPF 1% 5mL VIAL INJ ONE (09:15)
[2018-06-27] MEDS ORDERED: CLINDAMYCIN 600 MG/4 ML VIAL IM ONE (09:15)
--- NOTE | 2018-06-27 09:20 | NUR ---
BIB FATHER WITH C/O 10/10 RIGHT 2ND FINGER PAIN RADIATING TO RIGHT ARM, BLISTER NOTED TO RIGHT 2ND FINGER. PER FATHER PT HAS HX OF HTN, SCHIZOPHRENIA, BIPOLAR AND SUBSTANCE ABUSE.
--- NOTE | 2018-06-27 10:05 | NUR ---
Patient discharged with v/s stable. Written and verbal after care instructions given and explained. Patient and father verbalized understanding of instructions. Ambulatory with steady gait. All questions addressed prior to discharge. ID band removed. Patient advised to follow up with PMD. Rx of Bactrim and tylenol given. Patient educated on indication of medication including possible reaction and side effects. Opportunity to ask questions provided and answered.
[2018-06-27 10:11] VITALS: BP 127/82
== END 2018-06-27 10:05 | disposition home or self-care (01) ==
LOC: MED 09:01
DX: L03.011 Cellulitis of right finger (principal); K21.9 Gastro-esophageal reflux disease without esophagitis; I10 Essential (primary) hypertension; E03.9 Hypothyroidism, unspecified; Z79.899 Other long term (current) drug therapy
CPT/HCPCS: 10060; 96372; 99283; J3490; J2001

== ENCOUNTER 2018-07-01 13:31 | Emergency (ER) | payer OTHER ==
[~2018-07-01] VITALS: Ht 162.6 cm; Wt 73.1 kg
[2018-07-01 13:41] VITALS: BP 120/68
--- NOTE | 2018-07-01 13:45 | NUR ---
PT AMBULATED TO BED 4
--- NOTE | 2018-07-01 13:50 | NUR ---
27/M BIB FATHER C/O RT POINTER FINGER PAIN X 2 WEEKS. PT WAS SEEN HER ON SAT. FOR SAME COMPLAINT. PT ADMITS TO SUBSTANCE ABUSE. PATIENT POSITIONED FOR COMFORT; HOB ELEVATED; BEDRAILS UP X2; BED DOWN. ER MD MADE AWARE OF PT STATUS.
[2018-07-01] MEDS ORDERED: IBUPROFEN 600 MG TAB PO ONE (14:20)
[2018-07-01] MEDS ORDERED: LIDOCAINE 1% 500 MG/50 ML VIAL INJ SCH (14:20)
[2018-07-01] MEDS ORDERED: LIDOCAINE MPF 1% 5mL VIAL ONE (14:39)
[2018-07-01] MEDS: CLINDAMYCIN 600 MG/4 ML VIAL IM ONE ×2 (15:05→15:09)
[2018-07-01] MEDS ORDERED: CLINDAMYCIN 150 MG CAP PO ONE (15:10)
--- NOTE | 2018-07-01 15:11 | NUR ---
WOUND C/S SENT SPECIMEN TO LAB
[2018-07-01 15:23] VITALS: BP 112/72
--- NOTE | 2018-07-01 15:23 | NUR ---
Patient discharged with v/s stable. Written and verbal after care instructions given and explained. Patient alert, oriented and verbalized understanding of instructions. Ambulatory with steady gait. All questions addressed prior to discharge. ID band removed. Patient advised to follow up with PMD. Rx of IBUPROFEN&CLIDAMYCIN given. Patient educated on indication of medication including possible reaction and side effects. Opportunity to ask questions provided and answered.
== END 2018-07-01 15:23 | disposition home or self-care (01) ==
LOC: MED 13:31
DX: L03.011 Cellulitis of right finger (principal); K21.9 Gastro-esophageal reflux disease without esophagitis; I10 Essential (primary) hypertension; E07.9 Disorder of thyroid, unspecified; Z79.899 Other long term (current) drug therapy
CPT/HCPCS: 10060; 87070; 87186; 99283; J2001; J3490

== ENCOUNTER 2018-07-26 23:23 | Emergency (ER) | payer OTHER ==
[~2018-07-26] VITALS: Ht 162.6 cm; Wt 77.1 kg
[2018-07-26 23:25] VITALS: BP 144/90
--- NOTE | 2018-07-26 23:25 | NUR ---
TO BED # 07 AMBULATORY WITH FATHER
--- NOTE | 2018-07-26 23:36 | NUR ---
27/M bib father c/o pt has been smoking meth x3 days and c/o jaw pain. Pt states "When I smoke, my jaw hurts." Pt states the last time he smoked was last night. Pt denies smoking anything today. Patient AOX4. Speech is slurred and mumbling. Pt noted with unsteady gait. Pt needs to be assisted by father. Pt denies any injury or trauma to jaw pain.
--- NOTE | 2018-07-26 23:57 | NUR ---
Dr. Arellano evaluating patient at bedside.
[2018-07-27] MEDS ORDERED: LORazepam 2 MG/ML VIAL IM ONE (00:10)
[2018-07-27 00:40] VITALS: BP 143/76
--- NOTE | 2018-07-27 00:41 | NUR ---
Patient discharged with v/s stable. Written and verbal after care instructions given and explained. Patient verbalized understanding. Ambulatory with steady gait. All questions addressed prior to discharge. Advised to follow up with PMD.
== END 2018-07-27 00:41 | disposition home or self-care (01) ==
LOC: MED 23:23
DX: R68.84 Jaw pain (principal); F15.10 Other stimulant abuse, uncomplicated; K21.9 Gastro-esophageal reflux disease without esophagitis; I10 Essential (primary) hypertension; E07.9 Disorder of thyroid, unspecified; Z79.899 Other long term (current) drug therapy
CPT/HCPCS: 96372; 99283; J2060

== ENCOUNTER 2020-05-05 11:45 | Emergency (ER) | payer MEDICAID, OTHER ==
[~2020-05-05] VITALS: Ht 162.6 cm; Wt 65.8 kg
[~2020-05-05 11:45] MED LIST changes: +DIVA500T37 PO; -DIVA500T47 PO
[2020-05-05 11:52] VITALS: BP 125/98
--- NOTE | 2020-05-05 11:52 | NUR ---
Pt taken to bed 7.
--- NOTE | 2020-05-05 12:41 | NUR ---
Patient being evaluated by Dr. Arechiga at bedside.
[2020-05-05] MEDS ORDERED: BACITRACIN OINT 500 UNITS/GM PKT TP ONE (12:45)
[2020-05-05] MEDS ORDERED: LIDOCAINE MPF 1% 10 MG/ML VIAL INJ ONE (12:45)
--- NOTE | 2020-05-05 13:13 | NUR ---
29 YEAR OLD MALE COMPLAINS OF LEFT INDEX FINGER PAIN X VÍCTOR. VISIBLE SWELLING PRESENT IN MIDDLE OF FINGER. PT DENIES TRAUMA, UNAWARE HOW IT HAPPENED. PT AOX4, BREATHING EVEN AND UNLABORED, SKIN WARM AND DRY. BED IN LOWEST POSITION, LOCKED, BED RAIL UPX1. PMH - DENIES ALLERGIES - NKA
--- NOTE | 2020-05-05 13:19 | NUR ---
APPLIED BACITRACIN TO PT'S WOUND AND DRESED WITH BANDAID
[2020-05-05] MEDS ORDERED: IBUP-2213 PO (13:22)
[2020-05-05] MEDS ORDERED: CEPH500C16 PO (13:22)
[2020-05-05 13:26] VITALS: BP 125/98
--- NOTE | 2020-05-05 13:26 | NUR ---
Patient discharged with v/s stable. Written and verbal after care instructions given and explained. Patient alert, oriented and verbalized understanding of instructions. Ambulatory with steady gait. All questions addressed prior to discharge. ID band removed. Patient advised to follow up with PMD. Rx of Cephalexin and Ibuprofen electronically sent to [facility]. Patient educated on indication of medication including possible reaction and side effects. Opportunity to ask questions provided and answered.
== END 2020-05-05 13:26 | disposition home or self-care (01) ==
LOC: MED 11:45
DX: L02.512 Cutaneous abscess of left hand (principal); K21.9 Gastro-esophageal reflux disease without esophagitis; I10 Essential (primary) hypertension; E07.9 Disorder of thyroid, unspecified; F17.210 Nicotine dependence, cigarettes, uncomplicated; Z79.899 Other long term (current) drug therapy
CPT/HCPCS: 26010; 99283; J2001

== ENCOUNTER 2020-10-02 23:11 | Emergency (ER) | payer OTHER, MEDICAID ==
[~2020-10-02] VITALS: Ht 160 cm; Wt 72.6 kg
[~2020-10-02 23:11] MED LIST changes: +CEPH500C16 PO; +IBUP-2213 PO
[2020-10-03 02:00] VITALS: BP 111/64
--- NOTE | 2020-10-03 02:03 | NUR ---
TO LOBBY A/W BED AMBULATORY
--- NOTE | 2020-10-03 03:00 | NUR ---
NO RESPONSE, PATIENT CALLED TO BED . PATIENT LEFT WITHOUT BEING SEEN BY DR. SELLERS. NO FURTHER CARE PROVIDED FOR PATIENT.
--- NOTE | 2020-10-03 03:10 | NUR ---
CALLED FOR THE SECOND TIME NO RESPONSE
--- NOTE | 2020-10-03 03:15 | NUR ---
LEFT WITHOUT BEING SEEN BY ERMD
--- NOTE | 2020-10-03 03:15 | NUR ---
CALLED FOR THE THIRD TIME NO , RESPONSE
== END 2020-10-03 03:00 | disposition left against medical advice (07) ==
LOC: MED 23:11
DX: M79.671 Pain in right foot (principal); M79.672 Pain in left foot; Z53.21 Procedure and treatment not carried out due to patient leaving prior to being seen by health care provider

== ENCOUNTER 2021-05-14 16:57 | Emergency (ER) | payer OTHER, MEDICAID ==
[~2021-05-14] VITALS: Ht 162.6 cm; Wt 81.6 kg
[~2021-05-14 16:57] MED LIST changes: +IMIP25TA PO; -TOF25 PO
[2021-05-14 17:10] VITALS: BP 142/84
[2021-05-14] MEDS ORDERED: LORazepam 1 MG TAB PO ONE (17:20)
--- NOTE | 2021-05-14 19:26 | NUR ---
REPORT RECEIVED FROM MARGARET BUSTILLOS. CONTINUITY OF PT CARE AT THIS TIME.
--- NOTE | 2021-05-14 20:00 | NUR ---
Note undone in EDM - 05/15/21 at 0414 by ALVAREZ PT LAYING IN BED LOCKED IN LOWEST POSITION W X2 SIDERAILS UP FOR PT SAFETY. PT REPORTS BODY ACHES, DENIES N/V, CHEST PAIN, SOB OR OTHER SYMPTOMS. PT REPORTS WANTING TO COMMIT SUICIDE D/T ISSUES W HIS FATHER. PT REPORTS TAKING 11 PILLS OF ECSTACY AND DOING METH A SUICIDE ATTEMPT. CURRENTLY DENIES ANY FURTURE PLANS BUT ENDORSES WANTING TO COMMIT SUICIDE. ERMD AND CHARGE NURSE MADE AWARE. PT PLACED IN GOWN, BELONGINGS SENT TO SECURITY. PT TO BE MOVED CLOSER TO NURSING STATION. SAFETY PRECAUTIONS IN PLACE. VSS
--- NOTE | 2021-05-14 20:00 | NUR ---
RECEIVED 30 YO/M LAYING IN BED LOCKED IN LOWEST POSITION W X2 SIDERAILS UP FOR PT SAFETY. PT REPORTS BODY ACHES, DENIES N/V, CHEST PAIN, SOB OR OTHER SYMPTOMS. PT REPORTS WANTING TO COMMIT SUICIDE D/T ISSUES W HIS FATHER. PT REPORTS TAKING 11 PILLS OF ECSTACY AND DOING METH A SUICIDE ATTEMPT. CURRENTLY DENIES ANY FURTURE PLANS BUT ENDORSES WANTING TO COMMIT SUICIDE. PT AOX3, GCS 14. PT CRYING AND APPEARS ANXIOUS. UNABLE TO FULLY ASSES PT D/T PT NOT ANSWERING ALL QUESTIONS. ERMD AND CHARGE NURSE MADE AWARE. PT PLACED IN GOWN, BELONGINGS SENT TO SECURITY. PT TO BE MOVED CLOSER TO NURSING STATION. SAFETY PRECAUTIONS IN PLACE. VSS PMH:NONE STATED BY PT ALLERGIES: NONE STATED BY PT
--- NOTE | 2021-05-14 20:12 | NUR ---
PT HAD X1 BM ON SELF/BED. ASSISTED PT W PERINEAL CARE, DIAPER AND CLEAN SHEETS. PT PROVIDED URINE SAMPLE VIA URINAL. PT ASSISTED BACK TO BED. PROVIDED W BLANKET FOR COMFORT. WILL CONTINUE TO MONITOR.
--- NOTE | 2021-05-14 20:14 | NUR ---
PT MOVED TO BED 06.
[2021-05-14] MEDS ORDERED: diphenhydrAMINE 50 MG/ML VIAL IM ONE (20:25)
[2021-05-14] MEDS ORDERED: LORazepam 2 MG/ML VIAL IM ONE (20:25)
[2021-05-14] MEDS ORDERED: HALOPERIDOL IM 5 MG/ML VIAL IM ONE (20:25)
--- NOTE | 2021-05-14 20:26 | NUR ---
Pt report given to SHENG MCCORMACK. Transfer of care at this time.
--- NOTE | 2021-05-14 20:27 | NUR ---
RECEIVED ENDORSEMENT FROM MAGNUS ROBLES FOR TRANSFER OF CARE. PT IS STABLE.
--- NOTE | 2021-05-14 20:31 | NUR ---
PATIENT PRESENTS TO ED WITH OVERDOSE. PT STATES "I TOOK A LOT OF ECSTASY THIS MORNING." PT IS CONFUSED AND INCOHERENT AND NOT ABLE TO ANSWER QUESTIONS APPROPRIATELY; LUNGS CLEAR BL; HR EVEN AND REGULAR; PT IS DIAPHORETIC; VSS; PATIENT POSITIONED FOR COMFORT; HOB ELEVATED; BEDRAILS UP X2; BED DOWN. ER MD MADE AWARE OF PT STATUS. PMH: UNABLE TO OBTAIN ALLERGIES: UNABLE TO OBTAIN MEDS: UNABLE TO OBTAIN
--- NOTE | 2021-05-14 22:27 | NUR ---
PT IS RESTING AND STABLE. VSS. WILL CONTINUE TO MONITOR.
--- NOTE | 2021-05-15 00:20 | NUR ---
PT IS STABLE AND ASLEEP. REMINDED ERMD TO EXAM PT.
--- NOTE | 2021-05-15 02:20 | NUR ---
PT STABLE AND ASLEEP. VSS. WILL CONTINUE TO MONITOR.
--- NOTE | 2021-05-15 04:20 | NUR ---
PT STABLE AND ASLEEP. VSS. WILL CONTINUE TO MONITOR.
--- NOTE | 2021-05-15 06:19 | NUR ---
PT STABLE AND ASLEEP. VSS. WILL CONTINUE TO MONITOR.
--- NOTE | 2021-05-15 06:50 | NUR ---
DR. URIAS WITH PT AT BEDSIDE.
--- NOTE | 2021-05-15 06:57 | NUR ---
PROVIDED PT WITH PO FOOD. PT APPEARS MORE COHERENT UPON WAKING UP.
--- NOTE | 2021-05-15 07:18 | NUR ---
ENDORSED PT TO SHENG KHAN FOR TRANSFER OF CARE. PT IS STABLE.
--- NOTE | 2021-05-15 07:25 | NUR ---
Report recieved from Oscar CHANGE CONTROL ANALYST for transfer of care.
--- NOTE | 2021-05-15 08:30 | NUR ---
PT EATING BREAKFAST
[2021-05-15 09:10] VITALS: BP 148/104
--- NOTE | 2021-05-15 09:10 | NUR ---
Patient discharged with v/s stable. Written and verbal after care instructions given. Patient verbalized understanding. Ambulatory with steady gait. All questions addressed prior to discharge. Advised to follow up with PMD. Homeless resource packet and bus pass given to patient.
== END 2021-05-15 09:10 | disposition home or self-care (01) ==
LOC: MED 16:57
DX: F15.129 Other stimulant abuse with intoxication, unspecified (principal); F19.10 Other psychoactive substance abuse, uncomplicated; F20.9 Schizophrenia, unspecified; F32.9 Major depressive disorder, single episode, unspecified; Z59.00 Homelessness unspecified
CPT/HCPCS: 96372; 99285; J1200; J1630; J2060